=== PATIENT | female | born 1980 | race Caucasian/White ===

== ENCOUNTER 2018-05-17 09:37 | Emergency (ER) | payer OTHER ==
--- NOTE | 2018-05-17 09:48 | EDPHY ---
General Time Seen by Provider: 05/17/18 09:48 Narrative: CLINICAL IMPRESSION: Abnormal uterine bleeding, cough, upper respiratory infection ASSESSMENT/PLAN: Patient is a 37 year old female who presents who presents with multiple complaints including runny nose, congestion, cough and abnormal vaginal bleeding. Patient is afebrile and nontoxic appearing, no acute distress on arrival. Her abdomen is soft, no peritoneal signs on initial or re- examination. Vital signs remained stable while in the ED, no signs of sepsis or serious bacterial illness. negative. Pelvic exam with scant amount of bleeding from the cervical os, no cervical motion tenderness, adnexal fullness or adnexal tenderness. US with incidental complex right ovarian cyst, no adnexal masses identified, no intraperitoneal fluid, normal ovarian blood flow. There was no e/o torsion, no ruptured ovarian cyst, TOA and no e/o surgical abdomen. negative. History and physical examination is most consistent with URI, cough and abnormal uterine bleeding. Patient with a reassuring workup in the emergency department. Her lungs were clear to auscultation bilaterally, she refused chest x-ray in the emergency department. There are no findings to suggest significant sinusitis, influenza a, pneumonia or sepsis. Her abdomen was soft and I was unable to elicit any tenderness to palpation, I do not suspect acute intra-abdominal processes to include appendicitis, obstruction or perforation. The patient had minimal vaginal bleeding in the emergency department, no evidence of acute blood loss anemia. Patient also endorsed intermittent headaches, reported facial droop and issues with memory over the last 3 weeks, no active complaints in the emergency department. NIH was 0, negative test of skew, no truncal or gait ataxia. No findings to suggest subarachnoid, TIA, CVA or mass. As she had no symptoms I did not feel that she needed additional workup in the emergency department and that this was safe to be done by her primary care provider. She was very reassured by her other findings. The patient is well established with her primary care provider and OBGYN. She will call to schedule follow-up with both in 1-2 days. Conservative return precautions were discussed-she will return for significantly worsening or uncontrolled bleeding, abdominal pain, fever, worsening cough, shortness of breath or for any other concerning symptom. Patient verbalized understanding and she is in agreement with this plan. DIFFERENTIAL DX: Vaginal bleeding including but not limited to ectopic , menses, miscarriage, and dysfunctional uterine bleeding. In regards to her upper respiratory symptoms and cough, differential includes but not limited to and in no specific order sinusitis, meningitis, pneumonia, influenza, asthma exacerbation. ED COURSE: 1004: Case discussed with Dr. Ham 1030: Patient in [place] 1245: Ultrasound results with complex right ovarian cyst, no other acute findings. CHIEF COMPLAINT: Runny nose, congestion, cough, vaginal bleeding HPI: Patient is a 37-year-old female with no significant medical history who presents to the emergency department with a constellation of complaints including abnormal vaginal bleeding, runny nose, congestion, cough and intermittent headache with reported remote facial droop. Patient reports 3 weeks ago she started to experience increased headaches with an episode of right eye droop, this has not recurred since. She currently does not have insurance and travels a lot for work so did not seek medical attention at that time. Most recently patient has developed runny nose, congestion and cough over the last week, denies any fever, sore throat or neck stiffness. She denies any chest pain or shortness of breath. She has had mild intermittent headaches however denies any visual changes, vision loss, focal weakness or ataxia. She also endorses that she feels that she is having issues with her memory intermittently. She takes no medications, denies any significant medical history, also denies any illicit drug use, alcohol or cigarette smoking. She has had no neck or back pain. She denies any neurological complaints in the emergency department today. She is in a relationship with one partner, denies concern for or STI. PMH: Denies Pertinent Past Surgical History: Denies Family History: Not contributory Social History: Denies ETOH, drug use or smoking REVIEW OF SYSTEMS: All other systems negative Constitutional: No fever, no chills, appetite change. Eyes: No discharge, vision change. ENT: Congestion, running nose. No sore throat or ear pain. Cardiovascular: No chest pain, no palpitations. Respiratory: Cough. No shortness of breath. Gastrointestinal: Intermittent lower abdominal discomfort, vaginal bleeding. No vomiting or diarrhea. Genitourinary: No hematuria, dysuria, flank pain. Musculoskeletal: No back pain, joint swelling, joint pain, myalgias. Skin: No rashes, color change. Neurological: TENA. No dizziness, weakness. Memory problems. PHYSICAL EXAM: General Appearance: Alert, oriented, appropriate, cooperative, NAD, well hydrated, non-toxic appearing, VSS, no hypoxia. HENT: Normocephalic, atraumatic. Bilateral external ears are normal. Bilateral tympanic membranes are normal with pearly fry reflex. Nares are clear, mucosa is pink. Oropharynx is clear, uvula is midline. There is no tonsillar enlargement or exudate. The dentition is normal. Eyes: PERRLA, EOMI intact. Conjunctiva pink, no pallor or injection. Neck: Supple, nontender, no lymphadenopathy, no midline pain, FROM, no meningismus. Respiratory: There are no retractions, lungs are clear to auscultation. Cardiac: Regular rate and rhythm, no murmurs or gallops. Gastrointestinal: Abdomen is soft, bowel sounds normal, no masses/hernia. Unable to reproduce any tenderness to palpation on exam- no rigidity, guarding or focal peritoneal findings. Pelvic exam chaperoned by REINIER Ivy, min amount of blood noted in vaginal canal. No CMT. Cervix is pink and nonfriable. No adenexal fullness or tenderness. Neurological: Patient is alert and oriented to person, place, time, and situation. Recent and remote memory are intact. Attention and concentration are normal. Found knowledge is appropriate to level of education. Mood and affect normal. SPEECH: Language including naming, repetition, comprehension, and spontaneous speech are normal. No dysarthria or dysphagia. CRANIAL NERVES:II: Visual stoner are full to confrontation. Vision is grossly intact. III, IV, : Pupils are equal, round, reactive to light. Extraocular eye movements are full and without nystagmus. V: Facial sensation is intact to touch symmetrically in all 3 divisions. VII: Face is symmetric at rest with no asymmetry of grimace or evidence of facial weakness.VIII: Hearing is intact bilaterally to finger rub. IX, X: Palate is midline and elevates symmetrically with intact cough/gag. XI: Sternocleidomastoid and trapezius strength is normal. XII: Tongue protrudes midline without atrophy or fasciculations. MOTOR: Normal bulk and tone symmetrically in the upper and lower extremities. Upper extremities: shoulder abduction, elbow flexion, elbow extension, flexion of fingers and finger abduction strength 5/5 bilaterally.Lower extremities: hip flexion, knee flexion and extension, plantar and dorsiflexion of foot, and great toe extension strength 5/5 bilaterally. No pronator drift. SENSORY: Sensation is intact to light touch and symmetric in the UE's in LE's bilaterally. Romberg is negative. COORDINATION: Fine motor and rapid alternating movements are normal. Finger to nose is normal bilaterally. [id number] is normal bilaterally. No abnormal movements noted. There is no tremor at rest or with posture or action. GAIT/STATION: Casual, straightforward gait is normal. Patient can walk on toes and on heels. No gait instability. Skin: Warm, dry, no rashes, no nodules on palpation. Musculoskeletal: Extremities are symmetrical, full range of motion, no tenderness, deformity, swelling, or erythema. Psychiatric: Patient is oriented X 3, there is no agitation. MEDICAL DECISION MAKING: Patient was seen independently. Secondary supervising physician at time of evaluation was Dr. Ham, he did not evaluate this patient. Diagnosis: URI, cough, vaginal bleeding. New, requires workup Summary: See Assessment and Plan for summary of ED visit Clinical lab tests: ordered / reviewed. Independent visualization of images, tracing, or specimens: Yes. Decision to obtain medical records or history from someone other than the patient: No. Review / Summarize previous medical records: Yes. Discussed patient with another provider: Yes, Dr. Ham Patient Progress: Stable, discharge. - Diagnostics Imaging Results: Imaging Impressions Pelvic/Renal Ultrasound 05/17/18 10:02 Impression: Incidental complex right ovarian cyst at 2.3 x 2.7 x 1.9 cm, with repeat ultrasound suggested to assure resolution. It probably represents a hemorrhagic ovarian cyst. Otherwise, normal complete pelvic ultrasound. - History Smoking Status: Never smoked - Objective Vital Signs: Initial Vital Signs Temperature (C) 36.6 C 05/17/18 09:43 Heart Rate 80 03/01/19 09:43 Respiratory Rate 16 05/17/18 09:43 Blood Pressure 116/81 H 05/17/18 09:43 O2 Sat (%) 96 05/17/18 09:43 O2 Delivery Mode Room Air Allergies/Adverse Reactions: doxycycline Allergy (Verified 05/17/18 09:43) Home Medications: Medication Instructions Recorded NK [No Known Home Meds] 05/17/18 Laboratory Results: Laboratory Results 05/17/18 10:05 05/17/18 10:05 05/17/18 05/17/18 05/17/18 10:05 10:05 10:05 WBC 8.12 10^3/uL 10^3/uL (3.80-9.50) RBC 4.40 10^6/uL 10^6/uL (4.18-5.33) Hgb 13.8 g/dL g/dL (12.6-16.3) Hct 41.6 % % (38.0-47.0) MCV 94.5 fL fL (81.5-99.8) MCH 31.4 pg pg (27.9-34.1) MCHC 33.2 g/dL g/dL (32.4-36.7) RDW 13.4 % % (11.5-15.2) Plt Count 279 10^3/uL 10^3/uL (150-400) MPV 9.3 fL fL (8.7-11.7) Neut % (Auto) 64.9 % % (39.3-74.2) Lymph % (Auto) 24.9 % % (15.0-45.0) [place] % (Auto) 6.8 % % (4.5-13.0) Eos % (Auto) 2.6 % % (0.6-7.6) Baso % (Auto) 0.4 % % (0.3-1.7) Nucleat RBC Rel Count 0.0 % % (0.0-0.2) Absolute Neuts (auto) 5.28 10^3/uL 10^3/uL (1.70-6.50) Absolute Lymphs (auto) 2.02 10^3/uL 10^3/uL (1.00-3.00) Absolute Monos (auto) 0.55 10^3/uL 10^3/uL (0.30-0.80) Absolute Eos (auto) 0.21 10^3/uL 10^3/uL (0.03-0.40) Absolute Basos (auto) 0.03 10^3/uL 10^3/uL (0.02-0.10) Absolute Nucleated RBC 0.00 10^3/uL 10^3/uL (0-0.01) Immature Gran % 0.4 % % (0.0-1.1) Immature Gran # 0.03 10^3/uL 10^3/uL (0.00-0.10) Sodium 139 mEq/L mEq/L (135-145) Potassium 4.1 mEq/L mEq/L (3.5-5.2) Chloride 104 mEq/L mEq/L (97-110) Carbon Dioxide 25 mEq/l mEq/l (22-31) Anion Gap 10 mEq/L mEq/L (6-14) BUN 15 mg/dL mg/dL (7-23) Creatinine 0.9 mg/dL mg/dL (0.6-1.0) Estimated GFR > 60 Glucose 92 mg/dL mg/dL (70-100) Calcium 9.2 mg/dL mg/dL (8.5-10.4) Beta HCG, Qual NEGATIVE Departure - Departure Disposition: Home, Routine, Self-Care Clinical Impression: Vaginal bleeding, URI with cough and congestion Condition: Good Instructions: Dysfunctional Uterine Bleeding (ED), Upper Respiratory Infection (ED) Additional Instructions: DISCHARGE INSTRUCTIONS FROM YOUR DOCTOR Thank you for visiting our emergency department today. Please keep in mind that discharge from the emergency department does not mean that there is nothing wrong - it simply means that we have not identified an emergency condition that requires further evaluation or treatment in the hospital. You should always plan to follow up with primary care for re-evaluation of your condition in the next 2-3 days. Rest, push non-diuretic, non-caffeinated fluids, consume a healthy diet, all to help support your immune system fight infection. Consider running a coolmist humidifier in the bedroom. Consider warm salt water gargles for sore throat. Consider over the counter saline nasal washes ie: Neilmed sinus rinse, [place] or [place]. Consider over the counter Mucinex for congestion and/or cough as directed. For pain control: You may take Tylenol, I recommend 500-1000 mg every 6-8 hours as needed. Take with food and a full glass of water. Stop taking if this is upsetting her stomach. Do not exceed 4000 mg in a 24 hr period. You may also take ibuprofen, recommend 400 mg every 6 hr. Take with food and a full glass of water. Stop taking if this upsets her stomach. Do not exceed 2400 mg in a 24 hr period. As discussed, in the setting of a viral illness, you may develop a secondary bacterial infection, requiring an antibiotic. Watch for new or changing symptoms ie: new ear pain or drainage, increasing cough, shortness of breath, high fever, or any other concerning symptoms. It is important that you follow up with your OBGYN, please call Dr. Carballo to schedule an appointment for follow-up. Schedule a follow-up appointment with your primary care physician in the next 1 day for re-evaluation, sooner for any new concerns. Return for high fever, shaking chills, severe headache, facial redness or swelling, drainage from your ears, difficulty breathing or swallowing, throat tightness, drooling, change in voice, inability to open your mouth normally, severe neck pain, neck stiffness, shortness of breath, wheezing, noisy breathing , coughing up blood, chest pain, vomiting, diarrhea, bloody stools, decreased urine output or other concerns for dehydration, bloody urine, rash, dizziness, weakness, fainting, or for any other new, worsening or worrisome symptoms. People present with illnesses and injuries in different ways, and it is always possible that we have missed something. You may always return for re-evaluation if symptoms worsen or if they are not improving or if you develop new/different symptoms. Again, thank you for choosing our emergency department. We hope that you feel better. Referrals: Sol Palma MD [Primary Care Provider] - 1 day without fail Hetal Ramos MD [Medical Doctor] - 2-3 days, call for appt.
[2018-05-17 10:22] LABS: PLATELET COUNT 279 10^3/uL (150-400)
[2018-05-17 13:10] VITALS: BP 111/75
== END 2018-05-17 13:19 | disposition home or self-care (01) ==
DX: N93.9 Abnormal uterine and vaginal bleeding, unspecified (principal); J06.9 Acute upper respiratory infection, unspecified; N83.201 Unspecified ovarian cyst, right side